=== PATIENT | male | born 1965 | race Caucasian/White ===

== ENCOUNTER → 2022-05-26 14:51 | Outpatient (CLI) | payer BC, SELFPAY ==
--- NOTE | 2022-05-26 15:02 | XR_ITS ---
FINAL REPORT TECHNIQUE: Chest PA & Lateral CLINICAL HISTORY: RT SIDE PAIN,ELEVATED BLOOD PRESSURE, RIGHT SIDE PAIN X FEW WEEKS FINDINGS: 2 views of the chest were performed. The heart size is normal. The mediastinum is within normal limits. There is no acute cardiopulmonary process. There are no pleural effusions. There is no pneumothorax. There are right 8th and 9th posterior rib fractures favored to be chronic. IMPRESSION: No acute cardiopulmonary process. Right 8th and 9th posterior rib fractures, favor chronic. Reviewed, Interpreted and Dictated by Yusef Vale III, MD Transcribed by Fernando Cottrell Authenticated and [facility]
== END ==
PROVIDERS: PCP Family Medicine; Visit Provider Family Medicine
DX: R07.89 Other chest pain (principal)
CPT/HCPCS: 71046

== ENCOUNTER → 2022-06-09 11:21 | Outpatient (CLI) | payer BC, SELFPAY ==
--- NOTE | 2022-06-09 11:25 | US_ITS ---
FINAL REPORT CLINICAL HISTORY: NAUSEA FINDINGS: RIGHT UPPER QUADRANT ULTRASOUND Sonographic images of the right upper quadrant were obtained. The pancreas is partially obscured. There is fatty infiltration of the liver. There is a small amount of sludge in the gallbladder. The gallbladder appears normal without evidence of gallstones.The common duct is normal. Limited images of the right kidney are normal. IMPRESSION: Fatty liver. Gallbladder sludge. Reviewed, Interpreted and Dictated by Sergio Valverde MD Transcribed by Betty Jaquez Authenticated and [facility]
== END ==
PROVIDERS: PCP Family Medicine; Visit Provider Family Medicine
DX: R11.0 Nausea (principal)
CPT/HCPCS: 76705